=== PATIENT | female | born 1965 | race Caucasian/White ===

== ENCOUNTER 2018-12-07 19:59 | Emergency (ER) | payer SELFPAY ==
[~2018-12-07] VITALS: Ht 154.9 cm; Wt 54.6 kg
[2018-12-07 20:53] VITALS: BP 165/95; PULSE 67; RESP 18; Ht 154.9 cm; Wt 54.6 kg
== END 2018-12-08 00:02 | disposition left against medical advice (07) ==
LOC: E/R 19:59
DX: Z53.21 Procedure and treatment not carried out due to patient leaving prior to being seen by health care provider (principal)

== ENCOUNTER 2019-02-17 06:41 | Emergency (ER) | payer SELFPAY ==
[~2019-02-17] VITALS: Ht 154.9 cm; Wt 55.3 kg
[2019-02-17 07:06] VITALS: Ht 154.9 cm; Wt 55.3 kg
[2019-02-17] MEDS ORDERED: SOD CHLORIDE 0.9% 1,000 ML IV STA (07:27)
[2019-02-17] MEDS ORDERED: morphine 4 MG/ML VIAL IV STA (07:27)
[2019-02-17] MEDS ORDERED: ONDANSETRON 4 MG INJ IV STA ×2 (07:27→10:22)
[2019-02-17] MEDS ORDERED: KETOROLAC 30 MG INJ IV STA (07:27)
[2019-02-17] MEDS ORDERED: CIPROFLOXACIN 400MG/D5W 200 ML IVPB ONE (09:30)
[2019-02-17] MEDS ORDERED: TAMSULOSIN (SR) 0.4 MG CAP PO ONE (09:30)
[2019-02-17] MEDS ORDERED: ASCO1CAP2 PO (10:19)
[2019-02-17] MEDS ORDERED: HYDROmorphONE 1 MG/ML SYG IV STA (10:22)
[2019-02-17] MEDS ORDERED: IBUP800T48 PO (10:24)
[2019-02-17] MEDS ORDERED: CIPR500T4 PO (10:24)
[2019-02-17] MEDS ORDERED: HYDR-4011 PO (10:24)
[2019-02-17] MEDS ORDERED: DOCU-144 PO (10:24)
[2019-02-17 11:23] VITALS: BP 127/77; PULSE 65; RESP 16
--- NOTE | 2019-02-18 12:46 | ERD ---
ER Documentation Chief Complaint Chief Complaint left flank pain since this morning with n/v HPI This is a 53-year-old female presented to the emergency department with left flank pain. The patient indicates that the left flank pain began this morning roughly 3 hours prior to arrival. She stated the pain was 10 out of 10 intensit y. There is no alleviating or exacerbating factors. Her daughter brought her to the emergency department for further evaluation. She did not complain of any hematuria but has had mild frequency and urgency. She is felt nauseous and had 3 episodes of nonbloody nonbilious emesis. She states she is never had any similar pain in the past. The pain is a sharp shooting pain. She had no chest pain. She had no shortness of breath. ROS All systems reviewed and are negative except as per history of present illness. Medications Home Meds Active Scripts Docusate Sodium* (Colace*) 100 Mg Capsule, 100 MG PO TID, #30 CAP Prov:EFE GRESHAM MD 02/17/19 Hydrocodone/Acetaminophen ([place] 5-325 Tablet) 1 Each Tablet, 1 TAB PO Q6H PRN for PAIN, #20 TAB Prov:EFE GRESHAM MD 02/17/19 Ibuprofen* (Motrin*) 800 Mg Tab, 800 MG PO Q6H PRN for PAIN AND OR ELEVATED TEMP, #30 TAB Prov:EFE GRESHAM MD 02/17/19 Ciprofloxacin Hcl* (Ciprofloxacin Hcl*) 500 Mg Tablet, 500 MG PO BID for 5 Days, TAB Prov:EFE GRESHAM MD 02/17/19 Reported Medications Ascorbic Acid/Collagen Hydr (Collagen Plus Vit C Capsule) 1 Each Capsule, 1 EACH PO DAILY, CAP 02/17/19 Allergies Allergies: Coded Allergies: No Known Allergy (Unverified , 02/17/19) PMhx/Soc History of Surgery: Yes () Anesthesia Reaction: No Hx Neurological Disorder: Yes (NEUROPATHY) Hx Respiratory Disorders: No Hx Cardiac Disorders: No Hx Psychiatric Problems: No Hx Miscellaneous Medical Probl: No Hx Alcohol Use: No Hx Substance Use: No Hx Tobacco Use: No Smoking Status: Never smoker Physical Exam Vitals Vital Signs Date Temp Pulse Resp B/P (MAP) Pulse Ox O2 O2 Flow FiO2 Time Delivery Rate 02/17/19 98.4 65 16 127/77 99 Room Air 11:23 (94) 02/17/19 98.4 83 20 157/85 97 07:06 (109) Physical Exam Constitutional:Well-developed. Well-nourished. Patient appears to be in a significant amount discomfort secondary to pain HEENT:Normocephalic. Atraumatic.Pupils were equal round reactive to light. Moist mucous membranes.No tonsillar exudates. Neck: No nuchal rigidity. No lymphadenopathy. No posterior cervical spine tender ness or step-offs. Respiratory: Not using accessory muscles of respiration.Lungs were clear to auscultation bilaterally. No rhonchi. No rales. No wheezing. Cardiovascular: Regular rate regular rhythm.No murmurs. No rubs were appreciated.S1, S2 normal. Distal pulses are palpable 2+ bilaterally. GI: Abdomen was soft. Left CVA tenderness. Non Distended. No pulsatile abdominal masses or bruits. No rebound. No guarding. Bowel sounds were present and normal. Muscle skeletal: Full range of motion of both the upper and lower extremities bilaterally.Normal muscle tone.No assymetrical calf tenderness or swelling. Skin: No petechia, no purpura. No lesions on the palms or the soles of the feet. No maculopapular rash. NEURO: Patient was alert, awake, orientated x3.No facial droop. Gait observed and normal with no ataxia.Speech had regular rate and rhythm. No focal neurological deficits. Result Diagram: 02/17/19 0720 02/17/19 0720 Results 24 hrs Laboratory Tests Test 02/17/19 07:20 White Blood Count 10.7 10^3/ul Red Blood Count 4.42 10^6/ul Hemoglobin 13.8 g/dl Hematocrit 40.4 % Mean Corpuscular Volume 91.4 fl Mean Corpuscular Hemoglobin 31.2 pg Mean Corpuscular Hemoglobin Concent 34.2 g/dl Red Cell Distribution Width 11.7 % Platelet Count 232 10^3/UL Mean Platelet Volume 10.9 fl Immature Granulocytes % 1.000 % Neutrophils % 77.6 % Lymphocytes % 15.5 % Monocytes % 4.8 % Eosinophils % 0.6 % Basophils % 0.5 % Nucleated Red Blood Cells % 0.0 /100WBC Immature Granulocytes # 0.110 10^3/ul Neutrophils # 8.3 10^3/ul Lymphocytes # 1.7 10^3/ul Monocytes # 0.5 10^3/ul Eosinophils # 0.1 10^3/ul Basophils # 0.1 10^3/ul Nucleated Red Blood Cells # 0.0 10^3/ul Prothrombin Time 12.2 Sec Prothrombin Time Ratio 1.0 INR International Normalized Ratio 0.89 Activated Partial Thromboplast Time 25.8 Sec Urine Color YELLOW Urine Clarity CLEAR Urine pH 6.0 Urine Specific [place] 1.016 Urine Ketones TRACE mg/dL Urine Nitrite NEGATIVE mg/dL Urine Bilirubin NEGATIVE mg/dL Urine Urobilinogen NEGATIVE mg/dL Urine Leukocyte Esterase 1+ [place]/ul Urine Microscopic RBC 20 /HPF Urine Microscopic WBC 11 /HPF Urine Renal Epithelial Cells FEW /HPF Urine Bacteria FEW /HPF Urine Hemoglobin 3+ mg/dL Urine Glucose NEGATIVE mg/dL Urine Total Protein NEGATIVE mg/dl Sodium Level 142 mmol/L Potassium Level 3.6 mmol/L Chloride Level 108 mmol/L Carbon Dioxide Level 26 mmol/L Anion Gap 8 Blood Urea Nitrogen 16 mg/dl Creatinine 0.64 mg/dl Est Glomerular Filtrat Rate mL/min > 60 mL/min Glucose Level 143 mg/dl Calcium Level 9.3 mg/dl Total Bilirubin 0.5 mg/dl Direct Bilirubin 0.00 mg/dl Indirect Bilirubin 0.5 mg/dl Aspartate Amino Transf (AST/SGOT) 25 IU/L Alanine Aminotransferase (ALT/SGPT) 30 IU/L Alkaline Phosphatase 73 IU/L Troponin I < 0.012 ng/ml Total Protein 7.9 g/dl Albumin 4.5 g/dl Globulin 3.40 g/dl Albumin/Globulin Ratio 1.32 Amylase Level 125 U/L Lipase 117 U/L Current Medications Medications Dose Sig/Chucky Start Time Status Last (Trade) Ordered Route PRN Stop Time Admin Dose Reason Admin Sodium 1,000 ml @ Q1H STAT 02/17/19 DC 02/17/19 Chloride 1,000 mls/hr IV 07:27 07:43 02/17/19 08:26 Morphine 4 mg ONCE STAT 02/17/19 DC 02/17/19 Sulfate IV 07:27 07:43 (morphine) 02/17/19 07:30 Ondansetron 4 mg ONCE STAT 02/17/19 DC 02/17/19 HCl (Zofran IV 07:27 07:44 Inj) 02/17/19 07:30 Ketorolac 30 mg ONCE STAT 02/17/19 DC 02/17/19 Tromethamine IV 07:27 07:43 (Toradol) 02/17/19 07:30 Tamsulosin 0.4 mg ONCE ONCE 02/17/19 DC 02/17/19 HCl PO 09:30 09:39 (Flomax) 02/17/19 09:31 200 ml @ ONCE ONCE 02/17/19 DC 02/17/19 Ciprofloxacin 200 mls/hr IVPB 09:30 09:39 / Dextrose 02/17/19 10:29 1 mg ONCE STAT 02/17/19 Cancel Hydromorphone IV 10:22 HCl 02/17/19 10:23 (Dilaudid) Ondansetron 4 mg ONCE STAT 02/17/19 Cancel HCl (Zofran IV 10:22 Inj) 02/17/19 10:23 Procedures/MDM The patient presented to the emergency department with flank pain. My differential diagnosis included but was not limited to spinal origins of the pain such as fracture, osteomyelitis, epidural abscess, neoplasm, spondylolishtesis, discogenic, cauda equina syndrome or musculoligamentous. Nonspinal causes such as AAA, upper UTI, renal colic, aortic dissection, abdominal neoplasm were also considered as an etiology into their pain. The patient was immediately given intravenous Dilaudid Zofran and Toradol. She is also given a liter bolus of normal saline. CT scan the patient's abdomen reviewed by myself the radiologist indicate the followin. Mild left-sided hydroureteronephrosis with an obstructing left ureterovesica l junction 4 x 3 mm calculus. 2. Punctate nonobstructing left renal calculi. 3. Small hiatal hernia. 4. Mild retained stool within the proximal colon without obstruction. 6. No CT evidence for appendicitis. I obtained a 12-lead EKG scheduled for atypical myocardial infarction. 12 Lead EKG tracing ordered and reviewed by myself showed: Normal sinus rhythm of 83 bpm and no arrhythmia. [place] interval normal. QRS duration normal. No ST segment elevation No ST segment depression. No changes consistent with acute ischemia. Observation Note: Time: 4 hours Family Hx: No Hypertension Evaluation: Multiple exams showed improving symptoms and no evidence of obstructive uropathy. I also administered IV ciprofloxacin as the patient was symptomatic with frequency and urgency and a high risk for urinary tract infection. She will be sent home with ciprofloxacin. As well as analgesic medication. The patient was discharged home in fair condition. They were instructed to return to the emergency department at any time if there was any worsening of their condition. The patient stated they would follow up with their PCP in the next 24-48 hours to initiate a suitable medication regimen under the care of their PCP as well as to allow their PCP to monitor any drug reactions. The patient was discharged home with prescriptions after they gave informed consent to the new medication. They were also fully informed by myself on the adverse effects and adverse drug interactions in order to provide adequate safeguards to prevent possible adverse reactions to medications. Departure Diagnosis: Primary Impression: Flank pain Additional Impression: Nephrolithiasis Condition: Fair Patient Instructions: Kidney Stone W/ Colic EFE GRESHAM MD Feb 18, 2019 12:46
== END 2019-02-17 13:07 | disposition home or self-care (01) ==
LOC: E/R 06:41
DX: N20.0 Calculus of kidney (principal)
CPT/HCPCS: 74176; 80053; 81001; 82150; 83690; 84484; 85025; 85610; 85730; 87086; 93005; 96374; 96375; 99285; J0744; J1885; J2270; J2405; J7030